=== PATIENT | male | born 1955 | race Caucasian/White ===

== ENCOUNTER → 2016-04-15 | Outpatient (CLI) | payer OTHER ==
--- NOTE | 2016-04-15 09:16 | US ---
Ultrasound of the Abdomen Complete History: R10.11, abdominal pain. History of pancreatitis. Pancreatic tail 6 mm lesion. Right hepatic hemangioma. Comparison: MRI abdomen May 07, 2015. Findings: Gallbladder: No shadowing calculi, wall thickening, or pericholecystic fluid. Common bile duct is 5 m m in diameter which is normal. Liver: Homogeneous in echogenicity and measures 16 cm in length. Previous right lobe hepatic hemangio ma is not well visualized on today's study. Renal: Right kidney measures 10.2 x 4.7 x 5 cm and left kidney 11.2 x 4.7 x 4.8 cm without hydronephr osis in either kidney. Spleen: Homogeneous and 12 cm in length without splenomegaly. Pancreas: Pancreas partially obscured by bowel gas. No peripancreatic fluid. Head and uncinate proces s are not well visualized. Previously identified pancreatic tail lesion is not well visualized due to overlying bowel gas. Aorta: Visualized upper abdominal aorta demonstrates no aneurysm. IVC: Grossly patent. Impression: 1. No cholelithiasis or biliary ductal dilation. 2. Limited evaluation of the pancreas without peripancreatic fluid. Previously identified pancreatic tail 6 mm lesion is not well visualized due to overlying bowel gas. Previous MRI from May 2015 sacha mmended follow up of this lesion in one year, therefore, recommend follow-up MRI of the abdomen. 3. Previously identified hepatic lesion is not well visualized on today's study. Recommendation: MRI of the abdomen for further evaluation of the pancreas including pancreatic tail l esion.
== END ==
LOC: FIMAGING 07:28
PROVIDERS: ATTEND Physician Assistant
DX: R10.9 Unspecified abdominal pain (principal)

== ENCOUNTER → 2016-10-08 | Outpatient (CLI) | payer OTHER | LOC: BMCIMAGING 14:15 | PROVIDERS: ATTEND Podiatrist Foot & Ankle Surgery | DX: M21.42 Flat foot [pes planus] (acquired), left foot (principal); M77.32 Calcaneal spur, left foot ==